=== PATIENT | male | born 1975 ===

== ENCOUNTER 2016-10-16 14:33 | Emergency (ER) | payer SELFPAY ==
[2016-10-16 14:34] VITALS: BMI 31.3
[2016-10-16 15:16] VITALS: BP 101/62; PULSE 91; RESP 16; TEMP 98.5; O2SAT 99
[2016-10-16] MEDS ORDERED: Oxycodone/Acetaminophen 5/325 mg Tab PO STA (15:26)
[2016-10-16] MEDS ORDERED: Oxycodone/Acetaminophen 5/325 mg Tab ONE (15:32)
--- NOTE | 2016-10-16 15:38 | ED PDOC ---
HPI: Back Time Seen by Provider: 10/16/16 15:20 Chief Complaint (Nursing): Back Pain Chief Complaint (Provider): back pain History Per: Patient History/Exam Limitations: no limitations Additional Complaint(s): 41yo M in ED for chronic back pain -states he had MRI last week dx with herniated disc. [facility] who [facility]. pt has been having trouble making an appt. pt admits to pain radiating down legs, sharp shooting pain in back radiating down legs b/l without abd pain, n/v/CP/SOB/ hematuira/dysuria/BM incontinence - Risk Factors AAA Risk Factors: Neg: Older Than 49 Years Of Age, Hypertension, Connective Tissue Disease, Marfan's Syndrome, Jael-Danlos Syndrome, Prior AAA, 1st Degree Relative/s With AAA Past Medical History Reviewed: Historical Data, Nursing Documentation, Vital Signs Vital Signs: Last Vital Signs Temp 98.5 F 10/16/16 15:14 Pulse 91 H 10/16/16 15:14 Resp 16 10/16/16 15:14 BP 101/62 10/16/16 15:14 Pulse Ox 99 10/16/16 15:14 - Medical History PMH: Anxiety, Depression, Fractures (LEFT ANKLE), Seizures (Alcohol related) Denies: Diabetes, Hepatitis, HIV, HTN, Chronic Kidney Disease, Sexually Transmitted Disease - Surgical History Surgical History: Appendectomy (13 years ago reported by patient) - Family History Family History: States: Unknown Family Hx - Immunization History Hx Influenza Vaccination: No - Home Medications Home Medications: Ambulatory Orders Medication Instructions Recorded Sertraline [Zoloft] 100 mg PO DAILY #60 tab 02/06/16 Clonazepam [Klonopin] 2 mg PO TID 09/26/16 Risperidone [Risperdal] 1 mg PO HS 09/26/16 busPIRone [Buspar] 5 mg PO DAILY 09/26/16 - Allergies Allergies/Adverse Reactions: Allergies Allergy/AdvReac Type Severity Reaction Status Date / Time No Known Allergies Allergy Verified 10/16/16 15:14 Review of Systems ROS Statement: Except As Marked, All Systems Reviewed And Found Negative Musculoskeletal: Positive for: Back Pain Physical Exam - Reviewed Nursing Documentation Reviewed: Yes Vital Signs Reviewed: Yes - Physical Exam Appears: Positive for: Well, Non-toxic, No Acute Distress Skin: Positive for: Normal Color, Warm, DRY Eye Exam: Positive for: Normal appearance, EOMI, PERRL Cardiovascular/Chest: Positive for: Regular Rate, Rhythm Respiratory: Positive for: CNT, Normal Breath Sounds Back: Positive for: Normal Inspection, Vertebral Tenderness, Muscle Spasm Extremity: Positive for: Normal ROM. Negative for: Calf Tenderness Neurologic/Psych: Positive for: Alert, Oriented - ECG O2 Sat by Pulse Oximetry: 99 Medical Decision Making Medical Decision Making: pt advised to continue f.u with pain mgnt and givne perocet in ED Disposition - Clinical Impression Clinical Impression: Back pain - Patient ED Disposition Is Patient to be Admitted: No Counseled Patient/Family Regarding: Need For Followup, Rx Given - Disposition Referrals: [facility] [Outside] Disposition: Routine/Home Disposition Time: 15:41 Condition: STABLE Instructions: Back Pain (ED)
== END 2016-10-16 15:40 | disposition home or self-care (01) ==
LOC: H.ER 14:33
DX: M54.9 Dorsalgia, unspecified (principal); F32.9 Major depressive disorder, single episode, unspecified; F41.9 Anxiety disorder, unspecified; I10 Essential (primary) hypertension